=== PATIENT | female | born 1980 | race African-American/Black ===

== ENCOUNTER 2017-05-30 10:18 | Emergency (ER) | payer MEDICAID ==
[~2017-05-30] VITALS: Ht 167.6 cm; Wt 75.0 kg
[2017-05-30] MEDS ORDERED: IBUPROFEN 600MG TABLET PO ONE (12:45)
[2017-05-30] MEDS ORDERED: TRAMADOL 50MG TABLET PO ONE (12:45)
[2017-05-30 16:21] VITALS: BP 120/66
== END 2017-05-30 17:55 | disposition home or self-care (01) ==
LOC: ER 12:27
DX: M54.2 Cervicalgia (principal); L30.9 Dermatitis, unspecified; F17.200 Nicotine dependence, unspecified, uncomplicated
CPT/HCPCS: 70360; 81025; 99284; Z7610

== ENCOUNTER 2017-08-14 10:27 | Emergency (ER) | payer MEDICAID ==
[~2017-08-14] VITALS: Ht 167.6 cm; Wt 69.0 kg
[2017-08-14] MEDS ORDERED: METHYLPREDNISOLONE SOD SUCC 125 MG/2 ML VIAL IM ONE (17:15)
[2017-08-14] MEDS ORDERED: FAMOTIDINE 20MG TABLET PO ONE (17:15)
[2017-08-14] MEDS ORDERED: DIPHENHYDRAMINE 50MG/ML VIAL IM ONE (17:15)
[2017-08-14 20:10] VITALS: BP 144/94
== END 2017-08-14 20:01 | disposition home or self-care (01) ==
LOC: ER 15:48
DX: L50.0 Allergic urticaria (principal)
CPT/HCPCS: 96372; 99284; J1200; J2930

== ENCOUNTER 2018-02-14 12:26 | Emergency (ER) | payer MEDICAID ==
[~2018-02-14] VITALS: Ht 167.6 cm; Wt 79.0 kg
[2018-02-14 14:46] LABS: EOSINOPHILS % 2.6 % (0.0-5.0); HEMATOCRIT. 36.1 % (36.0-48.0); HEMOGLOBIN. 12.4 g/dL (12.0-16.0); LYMPHOCYTES % 20.5 % (20.0-50.0); MEAN CORPUSCULAR HEMOGLOBIN 31.8 pg (28.0-32.0); MEAN CORPUSCULAR VOLUME 92.6 fL (81.0-99.0); MEAN PLATELET VOLUME 8.1 fl (7.4-10.4); MONOCYTES % 7.5 % (2.0-8.0); NEUTROPHILS % 68.4 % (40.0-76.0); PLATELET 246 x1000/uL (130-400)
[2018-02-14 14:57] LABS: CHLORIDE 105 mEq/L (98-107)
[2018-02-14 15:05] LABS: HCG SCREEN NEGATIVE
[2018-02-14] MEDS ORDERED: DIATR MEGLU/DIATRIZOATE SOLN 30ML ONE (15:41)
[2018-02-14] MEDS ORDERED: ONDANSETRON HCL 4MG/2ML VIAL IV ONE (17:45)
[2018-02-14] MEDS ORDERED: MORPHINE SULFATE 4 MG/ML CPJ (NOT FOR IM USE) IV ONE (17:45)
[2018-02-14] MEDS ORDERED: KCL 20MEQ/100ML PREMIX 100 ML IV SCH (17:45)
[2018-02-14] MEDS ORDERED: ONDANSETRON 4MG ODT PO ONE (20:30)
[2018-02-14 20:50] VITALS: BP 124/59
== END 2018-02-14 21:02 | disposition home or self-care (01) ==
LOC: ER 14:33
DX: K52.9 Noninfective gastroenteritis and colitis, unspecified (principal); R42 Dizziness and giddiness; R61 Generalized hyperhidrosis; F17.200 Nicotine dependence, unspecified, uncomplicated
CPT/HCPCS: 36415; 71045; 74150; 80053; 84703; 85025; 93005; 96365; 96366; 96375; 99285; J2270; J2405; J3480; Q0162; Z7610; Q9963

== ENCOUNTER 2018-04-14 15:53 | Emergency (ER) | payer MEDICAID ==
[~2018-04-14] VITALS: Ht 167.6 cm; Wt 66.0 kg
[2018-04-15] MEDS ORDERED: IBUPROFEN 800MG TABLET PO ONE (01:15)
[2018-04-15] MEDS ORDERED: HYDROCODONE/ACETAMINOPHEN 5/325MG TABLET PO ONE (01:45)
[2018-04-15] MEDS ORDERED: BACITRACIN ZINC OINT UDPKT TOP ONE (01:45)
[2018-04-15] MEDS ORDERED: LIDOCAINE HCL 1% 20ML VIAL (Pyxis) INJ MC ONE (01:45)
[2018-04-15] MEDS ORDERED: TETANUS, DIPHTHERIA, PERTUSSIS VAC/PF 0.5ML (>7YR OLD) IM ONE (01:45)
[2018-04-15 04:04] VITALS: BP 135/85
== END 2018-04-15 04:06 | disposition home or self-care (01) ==
LOC: ER 17:12
DX: L03.012 Cellulitis of left finger (principal); F17.200 Nicotine dependence, unspecified, uncomplicated
CPT/HCPCS: 10060; 73140; 90471; 90715; 99284; J3490; Z7610

== ENCOUNTER 2018-05-22 07:53 | Emergency (ER) | payer MEDICAID ==
[~2018-05-22] VITALS: Ht 170.2 cm; Wt 101.1 kg
[2018-05-22] MEDS ORDERED: FAMOTIDINE 20MG/2ML VIAL IV ONE (09:15)
[2018-05-22] MEDS ORDERED: METHYLPREDNISOLONE SOD SUCC 125 MG/2 ML VIAL IV ONE (09:15)
[2018-05-22] MEDS ORDERED: DIPHENHYDRAMINE 50MG/ML VIAL IV ONE (09:15)
[2018-05-22] MEDS ORDERED: DIPHENHYDRAMINE HCL/ZINC ACET 28 GM CREAM TOP STA (10:34)
[2018-05-22 11:15] VITALS: BP 110/74
== END 2018-05-22 11:35 | disposition home or self-care (01) ==
LOC: ER 08:24
DX: T78.1XXA Other adverse food reactions, not elsewhere classified, initial encounter (principal); R21 Rash and other nonspecific skin eruption; Z72.0 Tobacco use; X58.XXXA Exposure to other specified factors, initial encounter; Z91.013 Allergy to seafood
CPT/HCPCS: 96374; 96375; 99284; 99406; J1200; J2930; J3490; Z7610

== ENCOUNTER 2018-06-10 13:19 | Emergency (ER) | payer MEDICAID ==
[~2018-06-10] VITALS: Ht 167.6 cm; Wt 77.0 kg
[2018-06-10 13:22] VITALS: BP 135/83
== END 2018-06-10 15:58 | disposition home or self-care (01) ==
LOC: ER 15:16
DX: L20.9 Atopic dermatitis, unspecified (principal); Z91.013 Allergy to seafood
CPT/HCPCS: 99283

== ENCOUNTER 2018-08-02 05:42 | Emergency (ER) | payer MEDICAID ==
[~2018-08-02] VITALS: Ht 167.6 cm; Wt 81.0 kg
[2018-08-02] MEDS ORDERED: SODIUM CHLORIDE 0.9% 1,000 ML IV ONE (06:36)
[2018-08-02] MEDS ORDERED: ONDANSETRON HCL 4MG/2ML VIAL IV STA ×2 (06:36→09:10)
[2018-08-02 07:51] LABS: BASOPHILS % 0.7 % (0.0-2.0); EOSINOPHILS % 2.6 % (0.0-5.0); HEMATOCRIT. 37.3 % (36.0-48.0); HEMOGLOBIN. 12.4 g/dL (12.0-16.0); LYMPHOCYTES % 17.9 % (20.0-50.0); MEAN CORPUSCULAR HEMOGLOBIN 30.8 pg (28.0-32.0); MEAN CORPUSCULAR VOLUME 92.3 fL (81.0-99.0); MEAN PLATELET VOLUME 8.4 fl (7.4-10.4); MONOCYTES % 8.9 % (2.0-8.0); NEUTROPHILS % 69.9 % (40.0-76.0); PLATELET 249 x1000/uL (130-400); RED BLOOD CELL COUNT 4.04 mill/uL (4.2-5.4); RED CELL DISTRIBUTION WIDTH 14.4 % (11.6-14.6)
[2018-08-02 07:57] LABS: CHLORIDE 107 mEq/L (98-107)
[2018-08-02 08:14] LABS: HCG SCREEN NEGATIVE
[2018-08-02] MEDS ORDERED: KETOROLAC 30MG/ML VIAL IV STA (09:10)
[2018-08-02 09:19] LABS: CLARITY URINE CLEAR (CLEAR); COLOR URINE PALE YELLOW (YELLOW); KETONES URINE NEGATIVE (NEGATIVE); LEUKOCYTE ESTERASE URINE NEGATIVE (NEGATIVE); NITRITE URINE NEGATIVE (NEGATIVE); OCCULT BLOOD URINE NEGATIVE (NEGATIVE); PH URINE 7.5 (4.5-8.0); PROTEIN URINE NEGATIVE (NEGATIVE); SPECIFIC GRAVITY URINE 1.006 (1.005-1.030); UROBILINOGEN URINE 0.2 E.U./dL (0.2-1.0)
[2018-08-02 10:43] VITALS: BP 132/83
== END 2018-08-02 10:43 | disposition home or self-care (01) ==
LOC: ER 05:42
DX: R11.2 Nausea with vomiting, unspecified (principal); R10.9 Unspecified abdominal pain; I51.7 Cardiomegaly; F17.200 Nicotine dependence, unspecified, uncomplicated; Z91.013 Allergy to seafood
CPT/HCPCS: 36415; 71045; 74176; 80053; 81003; 83690; 84703; 85025; 93005; 96361; 96374; 96375; 96376; 99285; J1885; J2405; J7030

== ENCOUNTER 2019-03-25 17:14 | Emergency (ER) | payer MEDICAID ==
[~2019-03-25] VITALS: Ht 170.2 cm; Wt 95.0 kg
[2019-03-25] MEDS ORDERED: MORPHINE SULFATE 4 MG/ML CPJ (NOT FOR IM USE) IV STA (20:25)
[2019-03-25] MEDS ORDERED: SODIUM CHLORIDE 0.9% 1,000 ML IV ONE (20:25)
[2019-03-25] MEDS ORDERED: ONDANSETRON HCL 4MG/2ML INJ IV STA (20:25)
[2019-03-25 20:52] LABS: BASOPHILS % 0.7 % (0.0-2.0); EOSINOPHILS % 4.8 % (0.0-5.0); HEMATOCRIT. 39.3 % (36.0-48.0); HEMOGLOBIN. 13.1 g/dL (12.0-16.0); LYMPHOCYTES % 24.6 % (20.0-50.0); MEAN CORPUSCULAR HEMOGLOBIN 30.2 pg (28.0-32.0); MEAN CORPUSCULAR VOLUME 90.5 fL (81.0-99.0); MEAN PLATELET VOLUME 8.4 fl (7.4-10.4); MONOCYTES % 8.4 % (2.0-8.0); NEUTROPHILS % 61.5 % (40.0-76.0); PLATELET 295 x1000/uL (130-400); RED BLOOD CELL COUNT 4.34 mill/uL (4.2-5.4); RED CELL DISTRIBUTION WIDTH 14.9 % (11.6-14.6)
[2019-03-25 20:55] LABS: CHLORIDE 103 mEq/L (98-107); PROTHROMBIN TIME 9.8 sec (9.6-11.0)
[2019-03-25] MEDS ORDERED: KETOROLAC 15MG/ML VIAL IV ONE (22:00)
[2019-03-25] MEDS ORDERED: IOHEXOL-300 100 ML BOTTLE ONE (23:12)
[2019-03-26] MEDS ORDERED: HYDROCODONE/ACETAMINOPHEN 5/325MG TABLET PO ONE (00:30)
[2019-03-26 01:13] VITALS: BP 119/78
== END 2019-03-26 01:15 | disposition home or self-care (01) ==
LOC: ER 17:14
DX: N93.9 Abnormal uterine and vaginal bleeding, unspecified (principal); R10.30 Lower abdominal pain, unspecified; Z91.013 Allergy to seafood
CPT/HCPCS: 36415; 74177; 76830; 76856; 80053; 81025; 83690; 85025; 85610; 96374; 96375; 99284; J1885; J2270; J2405; J7030; Q9967; Z7610

== ENCOUNTER 2019-06-19 06:21 | Emergency (ER) | payer MEDICAID ==
[~2019-06-19] VITALS: Ht 170.2 cm; Wt 125.0 kg
[2019-06-19] MEDS ORDERED: NITROGLYCERIN 0.4MG TABLET SL SL PRN (07:00)
[2019-06-19] MEDS ORDERED: ASPIRIN 81MG TABLET PO ONE (07:00)
[2019-06-19 07:10] LABS: BASOPHILS % 0.8 % (0.0-2.0); EOSINOPHILS % 4.9 % (0.0-5.0); HEMATOCRIT. 35.6 % (36.0-48.0); HEMOGLOBIN. 11.9 g/dL (12.0-16.0); LYMPHOCYTES % 16.5 % (20.0-50.0); MEAN CORPUSCULAR HEMOGLOBIN 30.4 pg (28.0-32.0); MEAN CORPUSCULAR VOLUME 90.6 fL (81.0-99.0); MEAN PLATELET VOLUME 8.3 fl (7.4-10.4); MONOCYTES % 12.4 % (2.0-8.0); NEUTROPHILS % 65.4 % (40.0-76.0); PLATELET 291 x1000/uL (130-400); RED BLOOD CELL COUNT 3.92 mill/uL (4.2-5.4); RED CELL DISTRIBUTION WIDTH 14.6 % (11.6-14.6)
[2019-06-19 07:16] LABS: CHLORIDE 106 mEq/L (98-107)
[2019-06-19 07:18] LABS: HCG SCREEN NEGATIVE
[2019-06-19 07:21] LABS: ETHANOL BLOOD < 10 mg/dL
[2019-06-19 07:38] LABS: PARTIAL THROMBOPLASTIN TIME 29.4 sec (23.4-31.0); PROTHROMBIN TIME 9.9 sec (9.6-11.0)
[2019-06-19] MEDS ORDERED: METHYLPREDNISOLONE SOD SUCC 125 MG/2 ML VIAL IV STA (07:43)
[2019-06-19] MEDS ORDERED: ALBUTEROL (0.083%) 2.5MG/3ML NEB HHN STA (07:43)
[2019-06-19] MEDS ORDERED: IPRATROPIUM BROMIDE (0.02%) 0.5MG/2.5ML NEB HHN STA (07:43)
[2019-06-19] MEDS ORDERED: ALBUTEROL (0.5%) 2.5MG/0.5ML NEB HHN ONE (07:57)
[2019-06-19] MEDS ORDERED: IPRATROPIUM BROMIDE (0.02%) 0.5MG/2.5ML NEB ONE (07:58)
[2019-06-19] MEDS ORDERED: ALBUTEROL (0.083%) 2.5MG/3ML NEB ONE (07:58)
[2019-06-19 13:39] VITALS: BP 136/69
== END 2019-06-19 13:48 | disposition home or self-care (01) ==
LOC: ER 06:21
DX: J45.909 Unspecified asthma, uncomplicated (principal); F17.200 Nicotine dependence, unspecified, uncomplicated
CPT/HCPCS: 36415; 71045; 80053; 80320; 83880; 84484; 84703; 85025; 85379; 85610; 85730; 93005; 94640; 96374; 99284; 99406; J2930; J7611; G0480

== ENCOUNTER 2019-10-28 06:47 | Emergency (ER) | payer MEDICAID ==
[~2019-10-28] VITALS: Ht 172.7 cm; Wt 91.0 kg
[2019-10-28] MEDS ORDERED: KETOROLAC 60MG/2ML VIAL IM STA (07:56)
[2019-10-28 08:47] LABS: HCG SCREEN NEGATIVE
[2019-10-28] MEDS ORDERED: HYDROCODONE/ACETAMINOPHEN 5/325MG TABLET PO STA (09:38)
[2019-10-28 10:55] VITALS: BP 135/96
== END 2019-10-28 11:33 | disposition left against medical advice (07) ==
LOC: ER 06:47
DX: M25.572 Pain in left ankle and joints of left foot (principal); X50.1XXA Overexertion from prolonged static or awkward postures, initial encounter; Y93.9 Activity, unspecified; Y92.9 Unspecified place or not applicable; Z91.013 Allergy to seafood
CPT/HCPCS: 73590; 73610; 84703; 96372; 99283; J1885; Z7610

== ENCOUNTER 2020-02-16 07:28 | Emergency (ER) | payer MEDICAID ==
[~2020-02-16] VITALS: Ht 170.2 cm; Wt 99.0 kg
[2020-02-16] MEDS ORDERED: ASPIRIN 81MG TABLET PO ONE (09:45)
[2020-02-16] MEDS ORDERED: LORAZEPAM 2MG/ML CPJ IV ONE (09:45)
[2020-02-16 10:16] LABS: BASOPHILS % 0.7 % (0.0-2.0); EOSINOPHILS % 0.1 % (0.0-5.0); HEMATOCRIT. 40.2 % (36.0-48.0); HEMOGLOBIN. 13.8 g/dL (12.0-16.0); LYMPHOCYTES % 12.6 % (20.0-50.0); MEAN CORPUSCULAR VOLUME 90.7 fL (81.0-99.0); MEAN PLATELET VOLUME 8.8 fl (7.4-10.4); MONOCYTES % 6.1 % (2.0-8.0); NEUTROPHILS % 80.5 % (40.0-76.0); PLATELET 282 x1000/uL (130-400); RED BLOOD CELL COUNT 4.43 mill/uL (4.2-5.4); RED CELL DISTRIBUTION WIDTH 14.8 % (11.6-14.6)
[2020-02-16 10:20] LABS: CHLORIDE 104 mEq/L (98-107)
[2020-02-16 12:28] VITALS: BP 135/86
== END 2020-02-16 14:55 | disposition home or self-care (01) ==
LOC: ER 07:28
DX: R07.89 Other chest pain (principal); F41.9 Anxiety disorder, unspecified; J45.909 Unspecified asthma, uncomplicated; I10 Essential (primary) hypertension
CPT/HCPCS: 36415; 71045; 80053; 84484; 85025; 93005; 96374; 99285; J2060; Z7610

== ENCOUNTER 2020-10-29 02:04 | Emergency (ER) | payer MEDICAID ==
[~2020-10-29] VITALS: Ht 167.6 cm; Wt 91.0 kg
[2020-10-29 02:10] VITALS: BP 138/92
== END 2020-10-29 04:49 | disposition left against medical advice (07) ==
LOC: ER 02:04
DX: Z53.21 Procedure and treatment not carried out due to patient leaving prior to being seen by health care provider (principal); I10 Essential (primary) hypertension; J45.909 Unspecified asthma, uncomplicated
CPT/HCPCS: 93005

== ENCOUNTER 2021-08-23 12:18 | Emergency (ER) | payer MEDICAID ==
[~2021-08-23] VITALS: Ht 167.6 cm; Wt 112.0 kg
[2021-08-23] MEDS ORDERED: ACET-2708 MT (13:10)
[2021-08-23] MEDS ORDERED: IBUP-2028 MT (13:11)
[2021-08-23 13:14] VITALS: BP 167/118
[2021-08-23] MEDS ORDERED: ACETAMINOPHEN 325MG TABLET PO ONE (13:15)
[2021-08-23] MEDS ORDERED: IBUPROFEN 600MG TABLET PO ONE (13:15)
== END 2021-08-23 13:37 | disposition home or self-care (01) ==
LOC: ER 12:18
DX: M79.18 Myalgia, other site (principal); I10 Essential (primary) hypertension; J45.909 Unspecified asthma, uncomplicated; F17.210 Nicotine dependence, cigarettes, uncomplicated; V49.00XA Driver injured in collision with unspecified motor vehicles in nontraffic accident, initial encounter; Y93.9 Activity, unspecified; Y92.410 Unspecified street and highway as the place of occurrence of the external cause
CPT/HCPCS: 81025; 99283

== ENCOUNTER 2023-11-08 08:29 | Emergency (ER) | payer MEDICAID, OTHER ==
[~2023-11-08] VITALS: Ht 175.3 cm; Wt 90.0 kg
[~2023-11-08 08:29] MED LIST: ACET-2708 MT; IBUP-2028 MT
[2023-11-08 08:44] VITALS: BP 115/75
[2023-11-08] MEDS ORDERED: ALBUTEROL (0.083%) 2.5MG/3ML NEB HHN ONE (09:15)
[2023-11-08] MEDS ORDERED: IPRATROPIUM/ALBUTEROL 0.5-3(2.5)MG/3ML NEB HHN ONE (09:15)
[2023-11-08] MEDS ORDERED: PREDNISONE 20MG TABLET PO ONE (09:15)
[2023-11-08 09:20] VITALS: PULSE 112; RESP 20; O2SAT 99
[2023-11-08] MEDS ORDERED: P50 MT (10:07)
[2023-11-08] MEDS ORDERED: BUDE6.9H INH (10:07)
[2023-11-08] MEDS ORDERED: ALBU2.5V13 NEB (10:07)
[2023-11-08 10:27] VITALS: PULSE 113; RESP 20; TEMP 98.2
== END 2023-11-08 10:28 | disposition home or self-care (01) ==
LOC: ER 08:29
DX: J45.901 Unspecified asthma with (acute) exacerbation (principal); E78.00 Pure hypercholesterolemia, unspecified; I10 Essential (primary) hypertension
CPT/HCPCS: 71045; 94640; 99283; J7512; Z7610 ×4

== ENCOUNTER 2024-04-27 14:58 | Emergency (ER) | payer MEDICAID, OTHER ==
[~2024-04-27] VITALS: Ht 167.6 cm; Wt 80.0 kg
[~2024-04-27 14:58] MED LIST changes: +ALBU2.5V13 NEB; +BUDE6.9H INH; +P50 MT
[2024-04-27 15:03] VITALS: O2SAT 100
[2024-04-27 16:02] LABS: BASOPHILS % 1.1 % (0.0-2.0); EOSINOPHILS % 0.9 % (0.0-5.0); HEMATOCRIT. 31.6 % (36.0-48.0); HEMOGLOBIN. 10.9 g/dL (12.0-16.0); LYMPHOCYTES % 26.4 % (20.0-50.0); MEAN CORPUSCULAR HGB CONC 34.4 g/dL (31.0-37.0); MEAN CORPUSCULAR VOLUME 92.9 fL (81.0-99.0); MEAN PLATELET VOLUME 8.1 fl (7.4-10.4); MONOCYTES % 5.4 % (2.0-8.0); NEUTROPHILS % 66.2 % (40.0-76.0); PLATELET 239 x1000/uL (130-400); RED BLOOD CELL COUNT 3.41 mill/uL (4.2-5.4); RED CELL DISTRIBUTION WIDTH 16.2 % (11.6-14.6); WHITE BLOOD COUNT 8.3 x1000/uL (4.5-11.0)
[2024-04-27 16:09] LABS: CHLORIDE 108 mEq/L (98-107); SODIUM 140 mEq/L (136-145)
[2024-04-27 16:10] LABS: CALCIUM 8.8 mg/dL (8.7-10.4); CARBON DIOXIDE 20 mEq/L (21-32)
[2024-04-27 16:11] LABS: INR 0.9; PROTHROMBIN TIME 10.3 sec (9.6-11.0)
[2024-04-27] MEDS: ACETAMINOPHEN 325MG TABLET PO STA (16:11)
[2024-04-27 16:15] LABS: CREATININE 0.8 mg/dL (0.6-1.0); GLUCOSE 103 mg/dL (70-105); TROPONIN I HIGH SENSITIVITY 7 ng/L (3.0-34); UREA NITROGEN BLOOD 15 mg/dL (9-23)
[2024-04-27 16:17] LABS: ALANINE AMINOTRANSFERASE 29 IU/L (10-49); ALBUMIN 4.5 g/dL (3.2-4.8); ASPARTATE AMINOTRANSFERASE 51 IU/L (<34)
[2024-04-27 16:18] LABS: BILIRUBIN TOTAL 0.3 mg/dL (0.1-1.0); PROTEIN TOTAL 6.9 g/dL (6.0-8.3)
[2024-04-27 16:21] LABS: HCG SCREEN NEGATIVE
[2024-04-27 17:09] VITALS: BP 133/79; PULSE 106; RESP 18; TEMP 98
[2024-04-27 17:55] LABS: TROPONIN I HIGH SENSITIVITY 9 ng/L (3.0-34)
[2024-04-27] MEDS ORDERED: POTASSIUM CHLORIDE 20MEQ/PACKET PO NR (20:00)
[2024-04-28] MEDS ORDERED: MECL-299 MT (18:48)
== END 2024-04-27 18:08 | disposition left against medical advice (07) ==
LOC: ER 14:58
DX: R07.9 Chest pain, unspecified (principal); J45.909 Unspecified asthma, uncomplicated; E78.00 Pure hypercholesterolemia, unspecified; I10 Essential (primary) hypertension; Z91.013 Allergy to seafood
CPT/HCPCS: 36415; 71045; 80053; 84484; 84703; 85025; 93005; 99285

== ENCOUNTER 2024-04-28 11:31 | Emergency (ER) | payer MEDICAID, OTHER ==
[~2024-04-28] VITALS: Ht 177.8 cm; Wt 76.0 kg
[2024-04-28 11:37] VITALS: TEMP 98.2; O2SAT 99
[2024-04-28 12:15] LABS: BASOPHILS % 1.1 % (0.0-2.0); EOSINOPHILS % 3.1 % (0.0-5.0); HEMOGLOBIN. 11.5 g/dL (12.0-16.0); LYMPHOCYTES % 16.7 % (20.0-50.0); MEAN CORPUSCULAR HEMOGLOBIN 31.9 pg (28.0-32.0); MEAN CORPUSCULAR HGB CONC 33.8 g/dL (31.0-37.0); MEAN CORPUSCULAR VOLUME 94.4 fL (81.0-99.0); MEAN PLATELET VOLUME 8.1 fl (7.4-10.4); MONOCYTES % 10.4 % (2.0-8.0); NEUTROPHILS % 68.7 % (40.0-76.0); PLATELET 251 x1000/uL (130-400); RED CELL DISTRIBUTION WIDTH 15.8 % (11.6-14.6); WHITE BLOOD COUNT 6.8 x1000/uL (4.5-11.0)
[2024-04-28 12:19] LABS: CHLORIDE 105 mEq/L (98-107); POTASSIUM 3.4 mEq/L (3.5-5.1); SODIUM 137 mEq/L (136-145)
[2024-04-28 12:20] LABS: CALCIUM 8.8 mg/dL (8.7-10.4); CARBON DIOXIDE 27 mEq/L (21-32)
[2024-04-28 12:25] LABS: CREATININE 0.6 mg/dL (0.6-1.0); GLUCOSE 83 mg/dL (70-105); UREA NITROGEN BLOOD 11 mg/dL (9-23)
[2024-04-28 12:27] LABS: ALANINE AMINOTRANSFERASE 38 IU/L (10-49); ALBUMIN 4.4 g/dL (3.2-4.8); ASPARTATE AMINOTRANSFERASE 67 IU/L (<34); BILIRUBIN TOTAL 0.5 mg/dL (0.1-1.0)
[2024-04-28] MEDS ORDERED: ALBUTEROL (0.083%) 2.5MG/3ML NEB HHN STA (15:25)
[2024-04-28 15:39] LABS: HCG SCREEN NEGATIVE
[2024-04-28] MEDS: SODIUM CHLORIDE 0.9% 1,000 ML IV ONE (15:39)
[2024-04-28 16:16] LABS: TROPONIN I HIGH SENSITIVITY 9 ng/L (3.0-34)
[2024-04-28 17:32] LABS: TROPONIN I HIGH SENSITIVITY 8 ng/L (3.0-34)
[2024-04-28] MEDS: POTASSIUM CHLORIDE 20MEQ TABLET SR PO NR (17:49)
[2024-04-28] MEDS: MECLIZINE 12.5MG TABLET PO NR (17:50)
[2024-04-28] MEDS: ASPIRIN 81MG TABLET PO NR (17:50)
[2024-04-28] MEDS: MAGNESIUM 1 G PREMIX 100 ML IV ONE (17:52)
[2024-04-28] MEDS ORDERED: MECL-299 MT (18:48)
[2024-04-28] MEDS ORDERED: IOHEXOL-300 100 ML BOTTLE ONE (20:05)
[2024-04-28 20:07] VITALS: BP 147/90; PULSE 79; RESP 15
== END 2024-04-28 20:00 | disposition home or self-care (01) ==
LOC: ER 11:31
DX: R42 Dizziness and giddiness (principal); R07.9 Chest pain, unspecified; F41.9 Anxiety disorder, unspecified; E87.8 Other disorders of electrolyte and fluid balance, not elsewhere classified; F17.200 Nicotine dependence, unspecified, uncomplicated; J45.909 Unspecified asthma, uncomplicated; E78.00 Pure hypercholesterolemia, unspecified; I10 Essential (primary) hypertension; Z91.013 Allergy to seafood
CPT/HCPCS: 80053; 84703; 83735; 85025; 85379; 84484; 36415; 71045; 71275; 93005; 96361; 96365; 99285; Q9967; Z7610 ×3; J8597; J3475

== ENCOUNTER 2024-08-07 11:43 | Emergency (ER) | payer MEDICAID, OTHER ==
[~2024-08-07] VITALS: Ht 170.2 cm; Wt 100.0 kg
[~2024-08-07 11:43] MED LIST changes: +MECL-299 MT
[2024-08-07 11:52] VITALS: O2SAT 99
[2024-08-07 11:55] VITALS: BP 130/85; PULSE 104; RESP 16; TEMP 98.5; O2SAT 99
[2024-08-07] MEDS ORDERED: CEPH500C2 MT (14:07)
[2024-08-07] MEDS ORDERED: TRAM50TA3 MT (14:07)
[2024-08-07] MEDS ORDERED: BO1 TP (14:07)
== END 2024-08-07 14:30 | disposition home or self-care (01) ==
LOC: ER 11:43
DX: T24.211A Burn of second degree of right thigh, initial encounter (principal); J45.909 Unspecified asthma, uncomplicated; E78.00 Pure hypercholesterolemia, unspecified; I10 Essential (primary) hypertension; Z79.899 Other long term (current) drug therapy; Z91.013 Allergy to seafood; Y08.89XA Assault by other specified means, initial encounter; Y93.89 Activity, other specified; Y92.89 Other specified places as the place of occurrence of the external cause; Y99.8 Other external cause status
CPT/HCPCS: 99283